=== PATIENT | male | born 1975 | race American Indian/Alaskan Native ===

== ENCOUNTER 2020-10-12 18:50 | Emergency (ER) | payer OTHER ==
--- NOTE | 2020-10-12 19:19 | Emergency Department Report ---
History of Present Illness - General Chief Complaint: Overdose Stated Complaint: OD Time Seen by Provider: 10/12/20 19:14 Source: patient Mode of arrival: Ambulatory Limitations: No Limitations - History of Present Illness Initial Comments: 45-year-old male, history of arthritis, hypertension, presents to ED following accidental overdose. Patient states he bought a Percocet off the street to take for his chronic left knee pain. Patient states the next thing he remembers is being here in the emergency room. Patient was apparently unresponsive, EMS was called, patient was given Narcan 2 mg IV, with improvement of mental status. Patient is currently A&O x3. Patient denies any fever, swelling, or recent trauma to the knee. MD Complaint: accidental overdose -: This evening Context: Accidental Overdose: other (Patient bought Percocet off the street) Treatments Prior to Arrival: narcan - Related Data Allergies Allergy/AdvReac Type Severity Reaction Status Date / Time dextromethorphan Allergy Dizziness Verified 10/12/20 19:32 [From [employer] Cough] ED Review of Systems ROS: Stated complaint: OD Other details as noted in HPI Comment: All other systems reviewed and negative Constitutional: denies: fever Musculoskeletal: arthralgia (Reports chronic knee pain) ED Physical Exam - General Limitations: No Limitations General appearance: alert, in no apparent distress - Head Head exam: Present: atraumatic, normocephalic - Eye Eye exam: Present: normal appearance, PERRL, EOMI - ENT ENT exam: Present: mucous membranes moist - Neck Neck exam: Present: normal inspection - Respiratory Respiratory exam: Present: normal lung sounds bilaterally. Absent: respiratory distress - Cardiovascular Cardiovascular Exam: Present: regular rate, normal rhythm - GI/Abdominal GI/Abdominal exam: Present: soft. Absent: distended, tenderness - Extremities Exam Extremities exam: Present: other (Left knee appears normal, full range of motion, no swelling or erythema present, no tenderness to palpation) - Neurological Exam Neurological exam: Present: alert, oriented X3, CN II-XII intact. Absent: motor sensory deficit - Psychiatric Psychiatric exam: Present: normal affect, normal mood - Skin Skin exam: Present: warm, dry, intact, normal color. Absent: rash ED Course Vital Signs 10/12/20 10/12/20 10/12/20 19:16 19:31 19:45 Temperature Pulse Rate 90 87 Respiratory Rate Blood Pressure 130/72 123/79 Blood Pressure [Left] O2 Sat by Pulse 95 96 96 Oximetry 10/12/20 10/12/20 10/12/20 20:01 20:20 20:54 Temperature 98.9 F Pulse Rate 86 87 Respiratory 18 Rate Blood Pressure 117/73 125/75 Blood Pressure 125/75 [Left] O2 Sat by Pulse 93 99 Oximetry 10/12/20 10/12/20 21:01 22:01 Temperature Pulse Rate 82 79 Respiratory Rate Blood Pressure 133/80 135/78 Blood Pressure [Left] O2 Sat by Pulse 100 97 Oximetry ED Medical Decision Making - Lab Data Result diagrams: 10/12/20 19:32 10/12/20 19:32 - Medical Decision Making Patient observed in ED x3 hours. No additional requirement for Narcan. Patient A&O x3. Patient given outpatient resources for rehab. Patient also given outpatient follow-up for orthopedics. - Differential Diagnosis Accidental overdose, opioid abuse Critical care attestation.: If time is entered above; I have spent that time in minutes in the direct care of this critically ill patient, excluding procedure time. ED Disposition Clinical Impression: Accidental overdose, Opiate overdose Disposition: DC-01 TO HOME OR SELFCARE Is pt being admited?: No Condition: Stable Instructions: Opioid Use Disorder Referrals: ALEXIS STOVALL MD [Staff Physician] - 3-5 Days [facility] [Outside] - 3-5 Days Time of Disposition: 22:21
[2020-10-12 19:36] LABS: Amphetamine Screen,Urine Negative; Benzodiazepines Screen,Urine Negative; Cannabinoid Screen,Urine Negative; Cocaine Screen,Urine Negative; Methadone Screen,Urine Negative; Opiate Screen,Urine Negative
[2020-10-12 19:47] LABS: Basophils % (Auto) 0.3 % (0.0-1.8); Eosinophils % (Auto) 0.1 % (0.0-4.3); Hematocrit 40.1 % (35.5-45.6); Hemoglobin 13.2 gm/dl (11.8-15.2); Lymphocytes # (Auto) 0.9 K/mm3 (1.2-5.4); Lymphocytes % (Auto) 6.5 % (13.4-35.0); Mean Corpuscular HGB Conc 33 % (32-34); Mean Corpuscular Volume 92 fl (84-94); Monocytes # (Auto) 0.5 K/mm3 (0.0-0.8); Monocytes % (Auto) 3.4 % (0.0-7.3); Platelet Count 181 K/mm3 (140-440); Red Blood Count 4.37 M/mm3 (3.65-5.03); Red Cell Distribution Width 13.1 % (13.2-15.2)
[2020-10-12 20:05] LABS: Alanine Aminotransferase 21 units/L (7-56); Albumin 4.4 g/dL (3.9-5); BUN/Creatinine Ratio 8; Blood Urea Nitrogen 15 mg/dL (9-20); Calcium 8.7 mg/dL (8.4-10.2); Hemolysis Index 3
[2020-10-12 20:08] LABS: Bilirubin,Direct < 0.2 mg/dL (0-0.2)
[2020-10-12 22:31] VITALS: BP 135/78
== END 2020-10-12 22:51 | disposition home or self-care (01) ==
LOC: ED 18:50
DX: T40.601A Poisoning by unspecified narcotics, accidental (unintentional), initial encounter (principal); R41.82 Altered mental status, unspecified; Z88.8 Allergy status to other drugs, medicaments and biological substances; Y92.89 Other specified places as the place of occurrence of the external cause
CPT/HCPCS: 36415; 80048; 80076; 80307; 85025

== ENCOUNTER 2021-11-29 13:55 | Emergency (ER) | payer OTHER ==
--- NOTE | 2021-11-29 15:49 | Emergency Department Report ---
History of Present Illness - General Chief Complaint: Overdose Stated Complaint: OVERDOSE Time Seen by Provider: 11/29/21 15:34 Source: EMS Mode of arrival: Stretcher Limitations: No Limitations - History of Present Illness Initial Comments: Patient is a 46-year-old male who presents emergency room for an accidental overdose. Patient states that he started having knee pain and a friend of his gave him a Percocet 10 mg. Patient states that he is not taking Percocet but he want to try to see if he can relieve his knee. Patient states that he took the dose of Percocet and his friends states that he became unresponsive. Patient states his friend then called EMS and EMS brought him to the hospital to be evaluated. Patient states he woke up after EMS picked him up. EMS states that the patient's oxygen was initially low. Patient on oxygen at the beginning of the exam however the oxygen was removed and his oxygen remained stable. Patient denies pain. Patient denies headache. Patient denies chest pain. Patient denies shortness of breath. Patient denies fever and chills. Patient denies suicidal ideation. Patient denies trying to hurt himself. Patient states he was just trying to get some relief from the pain. Patient denies recent travel. Patient denies recent international travel. Patient denies exposure to the novel coronavirus. Patient denies sick contacts. Patient denies fever and chills. Patient denies cough. Patient denies diarrhea. Patient denies coming in contact with anybody with symptoms of the novel coronavirus. Complaint: accidental overdose -: Sudden How Overdose Was Discovered: called family/friend Context: Accidental Overdose: medication error Treatments Prior to Arrival: oxygen - Related Data Allergies Allergy/AdvReac Type Severity Reaction Status Date / Time dextromethorphan Allergy Dizziness Verified 11/29/21 14:20 [From [employer] Cough] ED Review of Systems ROS: Stated complaint: OVERDOSE Other details as noted in HPI Constitutional: denies: chills, fever Eyes: denies: eye pain, eye discharge, vision change ENT: denies: ear pain, throat pain Respiratory: denies: cough, shortness of breath, wheezing Cardiovascular: denies: chest pain, palpitations Endocrine: no symptoms reported Gastrointestinal: denies: abdominal pain, nausea, diarrhea Genitourinary: denies: urgency, dysuria Musculoskeletal: denies: back pain, joint swelling, arthralgia Skin: denies: rash, lesions Neurological: denies: headache, weakness, paresthesias Psychiatric: denies: anxiety, depression Hematological/Lymphatic: denies: easy bleeding, easy bruising ED Past Medical Hx - Past Medical History Previous Medical History?: Yes Hx Hypertension: Yes Additional medical history: Knee osteoarthritis - Family History Family history: no significant - Social History Smoking Status: Never Smoker Substance Use Type: None ED Physical Exam - General Limitations: No Limitations General appearance: alert, in no apparent distress - Head Head exam: Present: atraumatic, normocephalic - Eye Eye exam: Present: normal appearance - ENT ENT exam: Present: mucous membranes moist - Neck Neck exam: Present: normal inspection - Respiratory Respiratory exam: Present: normal lung sounds bilaterally. Absent: respiratory distress - Cardiovascular Cardiovascular Exam: Present: regular rate, normal rhythm. Absent: systolic murmur, diastolic murmur, rubs, gallop - GI/Abdominal GI/Abdominal exam: Present: soft, normal bowel sounds - Rectal Rectal exam: Present: deferred - Extremities Exam Extremities exam: Present: normal inspection - Back Exam Back exam: Present: normal inspection - Neurological Exam Neurological exam: Present: alert, oriented X3 - Psychiatric Psychiatric exam: Present: normal affect, normal mood. Absent: depressed, homicidal ideation, suicidal ideation - Skin Skin exam: Present: warm, dry, intact, normal color. Absent: rash ED Course Vital Signs 11/29/21 11/29/21 11/29/21 14:19 14:29 14:31 Temperature 98.2 F 98.7 F Pulse Rate 90 84 82 Respiratory 16 13 17 Rate Blood Pressure 137/86 133/83 Blood Pressure 150/82 133/83 [Left] O2 Sat by Pulse 93 89 94 Oximetry 11/29/21 11/29/21 11/29/21 14:45 15:01 15:15 Temperature Pulse Rate 77 77 77 Respiratory 9 L 13 10 L Rate Blood Pressure 133/83 140/88 137/85 Blood Pressure [Left] O2 Sat by Pulse 94 96 94 Oximetry 11/29/21 11/29/21 11/29/21 15:31 15:45 16:01 Temperature Pulse Rate 73 72 71 Respiratory 10 L 12 14 Rate Blood Pressure 141/92 142/85 142/88 Blood Pressure [Left] O2 Sat by Pulse 98 89 Oximetry - Reevaluation(s) Reevaluation #1: Patient's oxygen removed and the patient's oxygen remained stable. Patient is alert and oriented x4. Patient denies suicidal ideations. Patient denies depression. Patient denies homicidal ideations. Patient states he does not want a wait any longer for his labs to come back. Patient wants to sign out AMA. Patient signed AMA form. I discussed the risk with patient and patient voiced understanding of the risk. 11/29/21 16:58 ED Medical Decision Making - Lab Data Result diagrams: 11/29/21 16:14 - Medical Decision Making Patient is a 46-year-old male that presents emergency room after taking a friend's Percocets and the patient became unresponsive. Patient states that he was alert and oriented prior to leaving his friend's house with EMS. Patient arrived on oxygen. Patient placed on ox by EMS however the patient removed of oxygen at the initial exam and remained in normal oxygen level throughout his stay in the ER. Patient simply had a medication error and took a Percocet was too strong for him since he had never taken it. Patient states he does not want to wait for blood work to be done. Patient signed out AMA. I discussed the risk with patient. Patient voiced understanding of the risk. Patient will be given a formal discharge eval the patient is signing out AMA. - Differential Diagnosis Accidental overdose, medication error, Critical care attestation.: If time is entered above; I have spent that time in minutes in the direct care of this critically ill patient, excluding procedure time. ED Disposition Clinical Impression: Medication error, Unresponsive episode, Hypoxia Altered mental status Qualifiers: Altered mental status type: unspecified Qualified Code(s): R41.82 - Altered mental status, unspecified Accidental overdose Qualifiers: Encounter type: initial encounter Qualified Code(s): T50.901A - Poisoning by unspecified drugs, medicaments and biological substances, accidental (unintentional), initial encounter Disposition: 07 LEFT AGAINST MEDICAL ADVICE Is pt being admited?: No Does the pt Need Aspirin: No Condition: Undetermined Instructions: Accidental Drug Poisoning, Adult Additional Instructions: Patient to follow-up with primary care in 2 to 3 days. Patient to avoid taking other peoples medications. Patient to rest. Patient to increase water. Patient to avoid strenuous exercise or heavy lifting until cleared by primary care. patient to take Tylenol or ibuprofen as needed for pain. Patient to continue all medications. Patient to monitor blood pressure at home. Patient to eat a low salt diet and heart healthy diet. Patient to return to the ER if condition worsens, changes or new symptoms arise. Referrals: ELOINA DIEZ MD [Staff Physician] - 2-3 Days Time of Disposition: 16:59
[2021-11-29 16:11] VITALS: BP 142/88
[2021-11-29 16:35] LABS: Hematocrit 41.6 % (35.5-45.6); Hemoglobin 14.1 gm/dl (11.8-15.2); Mean Corpuscular HGB Conc 34 % (32-34); Mean Corpuscular Volume 89 fl (84-94); Platelet Count 185 K/mm3 (140-440); Red Blood Count 4.68 M/mm3 (3.65-5.03); Red Cell Distribution Width 13.4 % (13.2-15.2)
[2021-11-29 17:01] LABS: Alanine Aminotransferase 19 units/L (7-56); Albumin 4.4 g/dL (3.9-5); BUN/Creatinine Ratio 11; Blood Urea Nitrogen 13 mg/dL (9-20); Calcium 9.4 mg/dL (8.4-10.2); Hemolysis Index 10
== END 2021-11-29 19:01 | disposition left against medical advice (07) ==
LOC: ED 13:55
DX: T50.901A Poisoning by unspecified drugs, medicaments and biological substances, accidental (unintentional), initial encounter (principal); R41.82 Altered mental status, unspecified; R09.02 Hypoxemia; I10 Essential (primary) hypertension; Z91.09 Other allergy status, other than to drugs and biological substances; Y92.89 Other specified places as the place of occurrence of the external cause
CPT/HCPCS: 36415; 80053; 85027; 99284